=== PATIENT | female | born 1980 | race Hispanic/Latino ===

== ENCOUNTER 2021-07-02 05:39 | Observation (INO) | payer OTHER ==
[2021-05-31 13:17] LABS: Basophils % (Auto) 0.4 % (0.0-1.8); Eosinophils % (Auto) 0.6 % (0.0-4.3); Hematocrit 31.3 % (30.3-42.9); Hemoglobin 10.8 gm/dl (10.1-14.3); Lymphocytes # (Auto) 2.1 K/mm3 (1.2-5.4); Lymphocytes % (Auto) 28.1 % (13.4-35.0); Mean Corpuscular HGB Conc 35 % (30-34); Mean Corpuscular Volume 82 fl (79-97); Monocytes # (Auto) 0.5 K/mm3 (0.0-0.8); Monocytes % (Auto) 7.3 % (0.0-7.3); Platelet Count 271 K/mm3 (140-440); Red Cell Distribution Width 16.1 % (13.2-15.2)
[2021-05-31 13:37] LABS: Blood Urea Nitrogen 9 mg/dL (7-17); Calcium 9.1 mg/dL (8.4-10.2); Hemolysis Index 2
[2021-05-31 13:38] LABS: BUN/Creatinine Ratio 13
--- NOTE | 2021-05-31 13:53 | Anesthesia Consultation ---
Anesthesia Consult and Med Hx Date of service: 06/04/21 - Airway Anesthetic Teeth Evaluation: Chipped ROM Head & Neck: Adequate Mental/Hyoid Distance: Adequate Mallampati Class: Class III Intubation Access Assessment: Probably Good - Pre-Operative Health Status ASA Pre-Surgery Classification: ASA3 Proposed Anesthetic Plan: General Nerve Block: TAP - Pulmonary Hx Smoking: No Hx Asthma: Yes (IN PAST) Hx Respiratory Symptoms: No (+2FS) COPD: No Hx Pneumonia: Yes (Had COVID 10/28 and denies residual symptoms) Hx Sleep Apnea: No (SNORES) - Cardiovascular System Hx Hypertension: No (TAKES BP MED FOR PALPITATIONS) Hx Heart Attack/AMI: No (Had ECHO/NST 03/27) Hx Cardia Arrhythmia: Yes (ST) Hx Heart Murmur: (MVP) - Central Nervous System Hx Neuromuscular Disorder: Yes (Fibromyalgia/Neuropathy hands & feet) Hx Back Pain: Yes Hx Psychiatric Problems: No - Gastrointestinal Hx Gastroesophageal Reflux Disease: No - Endocrine Hx End Stage Renal Disease: No Hx Hypothyroidism: Yes (Off meds now) - Hematic Hx Anemia: Yes Hx Sickle Cell Disease: No - Other Systems Hx Alcohol Use: No Hx Substance Use: No Hx Cancer: No
--- NOTE | 2021-07-01 14:03 | History and Physical Report ---
History of Present Illness Date of examination: 06/27/21 Date of admission: 07/02/21 Chief complaint: her for hystrectomy and to have my ovaries removed History of present illness: Visit Type: Pre-Op CC: no complaints. History of Present Illness: pt presents for LAVH, no obstetrics gynecology md complaints, .....................................................................Liliam altamirano May 30, 2021 9:37 AM Mask, Patient denies fever, cough, shortness of breath and exposure to COVID-19. All risk/benefits/alternatives were d/w pt and questions were addressed and answ ered. Planned procedure is LAVS WITH BSO. She understands that with removal of the ovaries, she will not longer have hormonal support. She desires removal fue to strong family h/o breast and uterine cancer.I took several moments discusing with pt the risk factors and methods of inheritace. Pt has not had any genetic testing done with mother having had breast CA. Pt states she is paranoid and desires removal of ovaries. I d/w pt the removal may no prevent can of the vaginal cuff or even breast CA. She expressed understanding of all that was discussed and states her pcp recommend a "total hysterctomy." I again made sure that a total hyst involves removal of the entire uterus and does not iclude removal of the ovaries. She expressed understanding and desires removal of the ovaries as well. I also d/w pt that given her medical and familyhistory, she may not be able to use hormone therapy and could suffer from immediate hotflushes. She expressed understanding and desires removal of ovaries. Risk I d/w include but are not limited to bleeding, infection, need for transfusion, injury to geetha dder, bowel, ovaries, ureters, fever, need for antibiotics, needs to rechedule surgery should her pre op Covid test return positive. Previously was scheduled for sx and rescheduled to today due to positive covid test. Pt states she was told by pre op that she would not need repeat testing for sx today. She has no s/sx of covid at this time and has been vaccinated and had covid pheumonia prior to vaccination in December 2020 Menstrual History: LMP (date): 05/19/2021 Current Method of Contraception: None Date of Last Mammogram: 04/18/2021 Date of Last Pap Smear: 04/21/2021 Past History : 2 Term Births: 2 Living Children: 2 Para: 2 [employer] History Uterine Surgery (not C/S): negative Operations: positive Cholecystectomy Tonsillectomy Hospitalizations: negative Anesthesia Complications: negative Abnormal PAP: negative Uterine Anomaly: negative ÁNGEL Exposure: negative Infertility: negative Infection History HIV Risk Eval: no Personal hx. of genital herpes: no Active Medications (reviewed today): FLONASE () LYRICA () METOPROLOL () ANTI-HISTAMINE () MULTIVITAMIN () B12 () ASPIRIN () Current Allergies: No known allergies Past Medical History: Reviewed history from 04/11/2021 and no changes required: Ovarian Cysts sleep apnea tachycardia Past Surgical History: Reviewed history from 04/11/2021 and no changes required: positive Cholecystectomy Tonsillectomy Family History Summary: Reviewed history and no changes required: 06/05/2021 General Comments - FH: Uterine CA-mother, sister Breast CA-mother Social History: Reviewed history from 10/29/2011 and no changes required: Patient is Risk Factors: Smoked Tobacco Use: Never smoker Smokeless Tobacco Use: Never Passive Smoke Exposure: no HIV High Risk Behavior: no Exercise: yes Times/wk: 4 Type of Exercise: walking Seatbelt Use: 100 % Mammogram History: Date of Last Mammogram: 04/18/2021 PAP Smear History: Date of Last PAP Smear: 04/21/2021 Mammogram History: Date of Last Mammogram: 04/08/2021 Results: Normal Bilateral Alcohol Use: no Drug Use: no Review of Systems General Denies fever, chills, sweats, anorexia, fatigue, weakness, malaise, weight loss and sleep disorder. Denies nausea, vomiting, headache, swelling of legs, abdominal pain, vaginal discharge, vaginal bleeding and contractions. Denies vaginal discharge, incontinence, dysuria, hematuria, urinary frequency, amenorrhea, menorrhagia, abnormal vaginal bleeding, pelvic pain, genital sores, decreased libido, painful periods, painful sex, urinary urgency, hot flashes, vaginal dryness, vaginal itching and vaginal odor. CV Denies chest pains, palpitations, syncope, dyspnea on exertion, orthopnea, PND and peripheral edema. Resp Denies cough, dyspnea at rest, excessive sputum, hemoptysis, wheezing and pleurisy. GI Denies nausea, vomiting, diarrhea, constipation, change in bowel habits, abdominal pain, melena, hematochezia, jaundice, gas/bloating, indigestion/heartburn, dysphagia and odynophagia. Endo Denies cold intolerance, heat intolerance, polydipsia, polyphagia, polyuria and unusual weight change. Breast Denies left breast lump, right breast lump, nipple discharge, bloody discharge from nipple, breast pain, abnormal mammogram and breast enlargement. MS Denies back pain, joint pain, joint swelling, muscle cramps, muscle weakness, stiffness, arthritis, sciatica, restless legs, leg pain at night and leg pain with exertion. Derm Denies rash, itching, dryness and suspicious lesions. Neuro Denies paralysis, paresthesias, headache, seizures, tremors, vertigo, transient blindness, frequent falls, frequent headaches and difficulty walking. Psych Denies depression, anxiety, irritability and mood swings. Eyes Denies blurring, diplopia, irritation, discharge, vision loss, eye pain and photophobia. ENT Denies earache, ear discharge, tinnitus, decreased hearing, nasal congestion, nosebleeds, sore throat and hoarseness. Allergy Denies urticaria, allergic rash, hay fever and recurrent infections. Heme Denies abnormal bruising, bleeding and enlarged lymph nodes. Physical Exam Appearance: well developed, well nourished, no acute distress Other Exams Lungs: no rales, rhonchi, or wheezes Abdomen: soft, non-tender, no masses, bowel sounds normal Extremities: normal alignment, no joint enlargement, crepitus, masses or tenderness; normal tone and strength Genitourinary Exam Comments: deferred until EUA Past History Past Medical History: other (see hpi) Past Surgical History: other (see hpi) [employer] History: other (see hpi) Family/Genetic History: other (see hpi) Social history: other (see hpi) Medications and Allergies Allergies Allergy/AdvReac Type Severity Reaction Status Date / Time TAPE-PAPER TAPE OK AdvReac Intermediate Itching Uncoded 05/29/21 12:34 Home Medications Medication Instructions Recorded Confirmed Last Taken Type Aspirin 81 mg PO DAILY 05/29/21 05/29/21 Unknown History B12 Active 1 tab PO DAILY 05/29/21 05/29/21 Unknown History Flonase 2 puff INHALATION HS 05/29/21 05/29/21 Unknown History Iron 325 mg PO DAILY 05/29/21 05/29/21 Unknown History Lyrica 100 mg PO TID 05/29/21 05/29/21 Unknown History Metoprolol 12.5 mg PO BID 05/29/21 05/29/21 Unknown History One-Daily Multi-Vitamin 1 tab PO DAILY 05/29/21 05/29/21 Unknown History Vitamin C 1,000 mg PO DAILY 05/29/21 05/29/21 Unknown History Vitamin D3 1 cap PO DAILY 05/29/21 05/29/21 Unknown History Zyrtec 10mg tab 1 tab PO HS 05/29/21 05/29/21 Unknown History Active Meds: Active Medications Lactated Ringer's (Lactated Ringers) 1,000 mls @ 125 mls/hr IV DIRECT FELA - Vital Signs Vital signs: Vital Signs Temp Pulse Resp BP Pulse Ox 98.2 F 70 20 173/99 97 05/31/21 11:30 05/31/21 11:30 05/31/21 11:30 05/31/21 11:30 05/31/21 11:30 Temp Pulse Resp BP Pulse Ox 98.2 F 70 20 173/99 97 05/31/21 11:30 05/31/21 11:30 05/31/21 11:30 05/31/21 11:30 05/31/21 11:30 - Physical Exam Cardiovascular: Normal S1, Normal S2 Lungs: Positive: Clear to auscultation, Normal air movement Abdomen: Positive: normal appearance, soft. Negative: distention, tenderness, guarding Genitourinary (Female): Positive: other (deferred until EUA) Results Result Diagrams: 05/31/21 06:00 05/31/21 06:00 All other labs normal. Assessment and Plan - Patient Problems (1) Menorrhagia with regular cycle Status: Acute Plan to address problem: -admit for LAVH with BSO -All risk, benefits and alternatives were d/w pt and questions were addressed and answered. -consents signed and placed on the chart and pt given copy to present at time of surgery -pre op prep as well as post op information also given to pt. (2) Dysmenorrhea Status: Acute
[~2021-07-02 05:39] MED LIST: ACETAMINOPHEN 500 MG TAB PO SCH; CELECOXIB 200 MG CAP PO NR; LACTATED RINGERS 1,000 ML IV SCH; MAGNESIUM OXIDE 400 MG TAB PO ONE; MIDAZOLAM 2 MG/2 ML INJ IV NR; fentaNYL 100 MCG/2 ML INJ IV SCH
[2021-07-02] MEDS ORDERED: SCOPOLAMINE TRANSDERMAL PATCH 72 HR TD NR (06:00)
[2021-07-02] MEDS ORDERED: LACTATED RINGERS 1,000 ML IV SCH (06:00)
[2021-07-02] MEDS ORDERED: CELECOXIB 200 MG CAP PO NR (06:00)
[2021-07-02] MEDS ORDERED: ACETAMINOPHEN 500 MG TAB PO SCH (06:00)
[2021-07-02] MEDS ORDERED: GABAPENTIN 300 MG CAP PO NR (06:00)
[2021-07-02] MEDS ORDERED: MIDAZOLAM 2 MG/2 ML INJ IV NR (06:00)
[2021-07-02] MEDS ORDERED: ceFAZolin/Water 2 GM/20 ML 2 GM/20 ML SYRINGE IV ONE (07:10)
[2021-07-02] MEDS ORDERED: LIDOCAINE MPF (2%) 20 MG/1 ML VIAL 5 ML ONE (07:15)
[2021-07-02] MEDS ORDERED: BUPIVACAINE/PF (0.5%) 5 MG/1 ML 30 ML VIAL INFILTRATI ONE ×2 (07:15→10:15)
[2021-07-02] MEDS ORDERED: SODIUM CHLORIDE 0.9% 100 ML ONE (07:15)
[2021-07-02] MEDS ORDERED: VASOPRESSIN 20 UNIT/1 ML INJ ONE (07:16)
[2021-07-02] MEDS ORDERED: propofoL 200 MG/20 ML VIAL IV ONE (07:16)
[2021-07-02] MEDS ORDERED: ROCURONIUM 50 MG/5 ML INJ IV ONE (07:20)
[2021-07-02] MEDS ORDERED: ONDANSETRON 4 MG/2 ML INJ IV PRN ×2 (07:29→12:00)
[2021-07-02] MEDS ORDERED: oxyCODONE /ACETAMINOPHEN 5-325MG TAB PO PRN ×2 (07:29→15:12)
[2021-07-02] MEDS ORDERED: HYDROmorphone 1 MG/1 ML INJ IV PRN (07:29)
[2021-07-02] MEDS ORDERED: KETAMINE/STERILE WATER 50 MG/ML SYRINGE ONE (07:29)
--- NOTE | 2021-07-02 07:29 | Anesthesia Day of Surgery ---
Anesthesia Day of Surgery - Day of Surgery Patient Examined: Yes Patient H&P Reviewed: Yes Patient is NPO: Yes Beta Blockers: Yes (metoprolol) Cardiac Clearance: Yes
[2021-07-02] MEDS ORDERED: MIDAZOLAM 2 MG/2 ML INJ ONE (07:41)
[2021-07-02] MEDS ORDERED: fentaNYL 100 MCG/2 ML INJ ONE (07:41)
[2021-07-02] MEDS ORDERED: ceFAZolin/STERILE WATER 2 GM/20 ML SYRINGE IV NR (08:00)
[2021-07-02] MEDS ORDERED: ePHEDrine SULFATE 50 MG/1 ML INJ ONE (08:18)
[2021-07-02] MEDS ORDERED: CITRIC ACID-SOD CITRATE 500 ML IV ONE (08:25)
[2021-07-02] MEDS ORDERED: HYDROmorphone 1 MG/1 ML INJ ONE (09:01)
[2021-07-02] MEDS ORDERED: LACTATED RINGERS 1,000 ML ONE (09:29)
[2021-07-02] MEDS ORDERED: dexAMETHasone 20 MG/5 ML VIAL ONE (09:30)
[2021-07-02] MEDS ORDERED: ONDANSETRON 4 MG/2 ML INJ ONE (09:30)
[2021-07-02] MEDS ORDERED: KETOROLAC 30 MG/1 ML INJ ONE (10:00)
[2021-07-02] MEDS ORDERED: GLYCOPYRROLATE 0.4 MG/2 ML INJ ONE (10:12)
[2021-07-02] MEDS ORDERED: NEOSTIGMINE 10MG/10 ML INJ MDV ONE (10:12)
[2021-07-02] MEDS ORDERED: CITRIC ACID-SOD CITRATE SOLN 500 ML IV SOLN IV ONE (10:15)
[2021-07-02] MEDS ORDERED: SODIUM CHLORIDE 0.9% IRR 1,500 ML BOTTLE IR ONE (10:15)
[2021-07-02] MEDS ORDERED: SODIUM CHLORIDE 0.9% IRRIG SOLN 2000 ML IR ONE (10:15)
--- NOTE | 2021-07-02 10:41 | Operative Report ---
Operative Report Operative Report: Date of procedure: 07/02/2021 Pre-operative diagnosis: Dysmenorrhea Menometrorrhagia Family history of breast cancer Family history of uterine cancer Obesity Post-operative diagnosis: Same Procedure name(s): Laparoscopic assisted vaginal hysterectomy Bilateral salpingectomy Surgeon: Anabel Mosley MD Zinc Chloride Operator: Dr. Riya Dang Anesthesia: General endotracheal anesthesia EBL: 150 mL Urine output: 250 mL of clear urine out at the end of the procedure Fluids: 1400 mL Findings: Grossly normal fallopian tubes and ovaries bilaterally normal uterus Uterine tissue consistent with possible adenomyosis Indications: Patient presents with a long history of painful prolonged bleeding with passing of clots. Patient also noted to have bleeding between periods. Patient desired to have the uterus removed in addition to removal of ovaries due to family history of ovarian cancer. All risk benefits and alternatives were discussed with the patient. Consents were signed and placed on the chart. Patient did receive medical clearance prior to surgery. Procedure: Patient was taken to the operating room where she was placed under general endotracheal anesthesia. She was then prepped and draped in sterile fashion. It was at this point that the large [employer] uterine manipulator was placed inside of the uterus after the uterus was sounded to approximately 12 cm. Ceja catheter was also placed at this time. Attention was then turned to the umbilicus in which a supraumbilical incision was made. Under direct visualization the 5 mm trocar was placed inside the peritoneum the peritoneum was then insufflated. As at this point that the laparoscopic portion of the procedure was performed. 2 lateral 5 mm ports were also placed under direct visualization. Using the tripolar instrument the upper pedicles were cauterized and transected to the including round ligament with excellent hemostasis noted bilaterally. Attention was then turned vaginally. A weighted speculum was placed into the vagina and the cervix was grasped with a single-tooth tenaculum 2. The cervix was then injected circumferentially with Pitressin. The cervix was then circumferentially incised with the scalpel and the bladder dissected off of the pubovesical cervical fascia anteriorly with a sponge stick and Metzenbaum scissors. The same procedure was performed posteriorly and the posterior cul-de-sac was entered into sharply without difficulty. At this point a Ada Clamp was placed over the uterosacral ligaments on either side. These were then transected and suture ligated with 0 Vicryl. Hemostasis was assured. The cardinal ligaments were then clamped on both sides transected and suture ligated in similar fashion. The uterine arteries were then serially clamped with Ada clamps transected and suture ligated on both sides. Excellent hemostasis was visualized. After it was clear that the uterus had been completely from all pedicles the uterus was removed vaginally intact with cervix intact. Prior to delivery of the uterus the adnexa bilaterally were transected and removed vaginally. The vaginal cuff angles were closed with figure of 8 stitches of 0 Vicryl on both sides. The peritoneum was incorporated in the stitching of the vaginal cuff. A series of interrupted figure of 8 sutures using 0 Vicryl were used to close the entire vaginal cuff. Excellent hemostasis was noted. The vagina was then irrigated copiously. Attention was then turned laparoscopically at which time. Again all pedicles were noted to be hemostatic. Ken was placed. Excellent hemostasis was noted the ureters were identified bilaterally with peristalsis noted bilaterally. All instruments were then removed from the abdomen and the vagina. All gas was released from the abdomen. The abdominal incisions were closed using 4-0 Monocryl. All of the abdominal incisions were injected with Marcaine without epi. Patient tolerated the procedure well sponge lap and needle counts were all correct 3 the patient was taken to the recovery room awake and in stable condition.
[2021-07-02] MEDS ORDERED: HYDROcodone/ACETAMINOPHEN 5-325 MG TAB PO PRN (11:41)
[2021-07-02] MEDS ORDERED: MORPHINE 4 MG/1 ML INJ IV PRN ×2 (11:41→15:12)
[2021-07-02] MEDS ORDERED: ACETAMINOPHEN 325 MG TAB PO PRN ×2 (11:41→15:12)
--- NOTE | 2021-07-02 13:14 | Post Anesthesia Evaluation ---
- Post Anesthesia Evaluation Patient Participated: Yes Airway Patent: Yes Stable Respiratory Function: Yes Nausea/Vomiting: No Temp > 96.8F: Yes Pain Manageable: Yes Adequeate Hydration: Yes Anesthesia Complications: No
[2021-07-02] MEDS ORDERED: IBUPROFEN 800 MG TAB PO PRN (15:12)
[2021-07-02] MEDS: ceFAZolin/NS 1 GM/50 ML 1 GM/50 ML BAG IV SCH (18:48)
[2021-07-02] MEDS: KETOROLAC 30 MG/1 ML INJ IV PRN (18:49)
[2021-07-02] MEDS ORDERED: PREGABALIN 50 MG CAP PO SCH (20:00)
[2021-07-03] MEDS: KETOROLAC 30 MG/1 ML INJ IV PRN (01:00)
[2021-07-03] MEDS: METOPROLOL TARTRATE 25 MG TAB PO SCH ×2 (01:00→12:25)
[2021-07-03] MEDS: ceFAZolin/NS 1 GM/50 ML 1 GM/50 ML BAG IV SCH (02:43)
[2021-07-03 05:34] LABS: Hematocrit 29.5 % (30.3-42.9); Hemoglobin 9.4 gm/dl (10.1-14.3)
--- NOTE | 2021-07-03 08:42 | Progress Note ---
Assessment and Plan - Patient Problems (1) Menorrhagia with regular cycle Current Visit: No Status: Acute (2) Dysmenorrhea Current Visit: No Status: Acute (3) S/P laparoscopic assisted vaginal hysterectomy (LAVH) Current Visit: Yes Status: Acute Plan to address problem: -ROUTINE POST OP CARE -D/C HOME THIS AM (4) History of bilateral salpingo-oophorectomy (BSO) Current Visit: Yes Status: Acute Subjective - Subjective Date of service: 07/03/21 Principal diagnosis: POD #1 S/P LAVH WITH BSO Interval history: Pt doing well this am. she is tolerating a regular diet and able to spontaneously void. She declines hotflushes and states that her pain is well controlled. No dizziness, sob, chest pain at this time. Patient reports: appetite normal, voiding normally, pain well controlled Objective - Vital Signs Latest vital signs: Vital Signs Temp Pulse Resp Resp BP BP Pulse Ox 07/03/21 04:12 98.1 F 66 16 110/51 98 07/03/21 01:30 18 07/03/21 01:00 60 18 130/65 07/03/21 00:25 98.2 F 60 18 130/65 100 07/03/21 00:00 98.3 F 60 18 130/65 100 07/02/21 23:45 98.1 F 57 L 16 133/62 97 07/02/21 22:02 98.3 F 64 18 125/55 97 07/02/21 20:00 18 18 98 07/02/21 19:01 98.5 F 63 16 126/61 100 07/02/21 16:40 97.7 F 62 18 139/73 100 07/02/21 12:25 97.6 F 60 16 109/52 99 07/02/21 12:00 62 18 111/48 100 07/02/21 11:48 62 18 112/55 100 07/02/21 11:33 61 18 116/56 100 07/02/21 11:03 98.1 F 65 14 116/52 99 07/02/21 10:48 71 14 118/42 99 07/02/21 10:43 78 16 112/55 100 07/02/21 10:38 82 14 117/52 100 07/02/21 10:33 97.5 F L 87 12 135/75 100 Intake and Output 07/02/21 07/03/21 07/03/21 22:59 06:59 14:59 Intake Total 50 Output Total 1100 800 Balance -1050 -800 Intake: IV 50 ANCEF/NS 1 GM/50 ML 1 gm 50 In 50 ml @ 100 mls/hr IV Q8H [facility] Rx#:[id number] Output: Urine 1100 800 Indwelling Catheter 900 Void 200 800 Other: Total, Output Amount 200 300 # Voids Void 1 - Exam Cardiovascular: Present: Normal S1, Normal S2 Lungs: Present: Clear to auscultation, Normal air movement Abdomen: Present: normal appearance, soft, normal bowel sounds. Absent: distention, tenderness, guarding Incision: Present: normal, dry, intact - Labs Labs: Abnormal lab results 07/03/21 Range/Units 05:19 Hgb 9.4 L (10.1-14.3) gm/dl Hct 29.5 L (30.3-42.9) %
--- NOTE | 2021-07-03 08:42 | Discharge Summary ---
Providers - Providers Date of Admission: 07/02/21 11:41 Date of discharge: 07/03/21 Attending physician: RYLEY ZABALA Primary care physician: DAMION MUSTAFA Hospitalization Reason for admission: other (LAVH with BSO) Incision: normal, dry, intact Discharge diagnosis: other (LAVH with BSO) Hospital course: Pt admitted for above stated procedure. Post op course was unremarkable. Pt did very well. She desires d/c home today. Condition at discharge: Good Disposition: 01 HOME / SELF CARE / HOMELESS - Discharge Diagnoses (1) Menorrhagia with regular cycle Status: Acute (2) Dysmenorrhea Status: Acute Plan - Discharge Medications Prescriptions: Docusate Sodium [Colace] 100 mg PO BID PRN #60 capsule PRN Reason: Constipation Ibuprofen [Motrin 800 MG tab] 800 mg PO Q8HR PRN #30 tablet PRN Reason: Pain, Moderate (4-6) oxyCODONE /ACETAMINOPHEN [Percocet 5/325] 1 tab PO Q4HR #30 tab Phenazopyridine [Pyridium] 100 mg PO TID #6 tab - Provider Discharge Summary Additional instructions: [] Smoking cessation referral if applicable(refer to patient education folder for contact #) [] Refer to [facility] Booklet Call your doctor immediately for: * Fever > 100.5 * Heavy vaginal bleeding ( >1 pad per hour) * Severe persistent headache * Shortness of breath * Reddened, hot, painful area to leg or breast * Drainage or odor from incision. * Keep incision clean and dry at all times and follow doctor's instructions regarding bathing/showering - Follow up plan Follow up: DAMION MUSTAFA MD [Primary Care Provider] - 7 Days
[2021-07-03 12:26] VITALS: BP 130/70
== END 2021-07-03 12:28 | disposition home or self-care (01) ==
LOC: OR 05:39 → OB 11:41
PROVIDERS: ADMIT Obstetrics & Gynecology; ATTEND Obstetrics & Gynecology
DX: N92.0 Excessive and frequent menstruation with regular cycle (principal); Z20.822 Contact with and (suspected) exposure to COVID-19; N94.6 Dysmenorrhea, unspecified; G47.30 Sleep apnea, unspecified; R00.0 Tachycardia, unspecified; Z90.49 Acquired absence of other specified parts of digestive tract; Z79.899 Other long term (current) drug therapy; Z98.890 Other specified postprocedural states
CPT/HCPCS: 36415; 58552; 80048; 81025; 84703; 85014; 85018; 85025; 86850; 86900; 86901; 88305; 88307; 96365; 96366; 96375; 96376; A4217; G0378; J0690; J1100; J1170; J1885; J2250; J2704; J2710; J3010; J3490; J7120; U0003; J2405